=== PATIENT | male | born 1990 | race Two or more races ===

== ENCOUNTER 2024-02-27 23:30 | Emergency (ER) | payer SELFPAY ==
[2024-02-27 23:36] VITALS: BP 140/86; PULSE 91; RESP 20; TEMP 98.7; BMI 37.6
[2024-02-28] MEDS ORDERED: ACETAMINOPHEN 500 MG TABLET (FP) ONE (00:01)
[2024-02-28] MEDS: ACETAMINOPHEN 325 MG TABLET (FP) PO ONE (00:03)
== END 2024-02-28 00:42 | disposition home or self-care (01) ==
LOC: JER 23:30
DX: M25.562 Pain in left knee (principal); M79.662 Pain in left lower leg; X50.1XXA Overexertion from prolonged static or awkward postures, initial encounter; Y93.02 Activity, running
CPT/HCPCS: 73562-TC-LT-FY; 99283-25